=== PATIENT | male | born 1985 | race Caucasian/White ===

== ENCOUNTER 2017-12-12 02:42 | Emergency (ER) | payer OTHER ==
[~2017-12-12] VITALS: Ht 188 cm; Wt 93.0 kg
[2017-12-12 03:00] VITALS: BP 122/69
[2017-12-12] MEDS ORDERED: SULFAMETH/TRIMETH 800/160 MG 1 UDTAB TABLET PO ONE ×2 (03:58→04:00)
[2017-12-12] MEDS ORDERED: CEPHALEXIN MONOHYDRATE 500 MG CAPSULE PO ONE ×2 (03:58→04:00)
== END 2017-12-12 04:23 | disposition home or self-care (01) ==
LOC: ER 02:44
DX: L03.012 Cellulitis of left finger (principal)
CPT/HCPCS: 73130; 99284; A4606; Z7610

== ENCOUNTER 2018-02-21 05:58 | Emergency (ER) | payer OTHER ==
[~2018-02-21] VITALS: Ht 177.8 cm; Wt 77.1 kg
[2018-02-21 06:00] VITALS: BP 124/89
== END 2018-02-21 07:05 | disposition home or self-care (01) ==
LOC: ER 05:58
DX: L85.3 Xerosis cutis (principal); F17.200 Nicotine dependence, unspecified, uncomplicated; F12.10 Cannabis abuse, uncomplicated
CPT/HCPCS: A4606; Z7502; Z7610

== ENCOUNTER 2018-02-22 01:27 | Emergency (ER) | payer OTHER ==
[~2018-02-22] VITALS: Ht 175.3 cm; Wt 74.8 kg
[2018-02-22 01:28] VITALS: BP 137/84
== END 2018-02-22 02:03 | disposition home or self-care (01) ==
LOC: ER 01:27
DX: L01.00 Impetigo, unspecified (principal); F17.200 Nicotine dependence, unspecified, uncomplicated; F12.10 Cannabis abuse, uncomplicated
CPT/HCPCS: A4606; Z7610

== ENCOUNTER 2018-04-19 02:27 | Emergency (ER) | payer OTHER ==
[~2018-04-19] VITALS: Ht 188 cm; Wt 81.6 kg
[2018-04-19 02:30] VITALS: BP 140/85
[2018-04-19] MEDS ORDERED: HYDROCODONE/APAP 10/325MG 1 EA TABLET PO ONE (03:00)
[2018-04-19] MEDS ORDERED: ONDANSETRON 4 MG TAB.RAPDIS SL ONE (03:00)
[2018-04-19] MEDS ORDERED: SULFAMETH/TRIMETH 800/160 MG 1 UDTAB TABLET PO ONE ×2 (03:00→03:23)
[2018-04-19] MEDS ORDERED: CEFTRIAXONE 1 G VIAL IM ONE (03:00)
[2018-04-19] MEDS ORDERED: CEFTRIAXONE 1 G VIAL ONE (03:22)
[2018-04-19] MEDS ORDERED: LIDOCAINE /MPF 1% VIAL 5 ML VIAL ONE (03:22)
[2018-04-19] MEDS ORDERED: HYDROCODONE/APAP 10/325MG 1 EA TABLET ONE (03:22)
[2018-04-19] MEDS ORDERED: ONDANSETRON 4 MG TAB.RAPDIS ONE (03:22)
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
--- NOTE | 2018-04-19 03:32 | NUR ---
ADMINISTERED ROCEPHIN 1GM IM TO L BUTTOCKS
== END 2018-04-19 03:33 | disposition home or self-care (01) ==
LOC: ER 02:29
DX: M79.644 Pain in right finger(s) (principal); F15.10 Other stimulant abuse, uncomplicated; L98.8 Other specified disorders of the skin and subcutaneous tissue; B99.8 Other infectious disease; F17.200 Nicotine dependence, unspecified, uncomplicated
CPT/HCPCS: A4606; J0696; J3490; Q0162; Z7610

== ENCOUNTER 2018-04-24 01:50 | Emergency (ER) | payer OTHER ==
--- NOTE | 2018-04-24 02:02 | NUR ---
CALLED PT IN WAITING ROOM, NO ANSWER.
--- NOTE | 2018-04-24 02:21 | NUR ---
CALLED PT IN WAITING ROOM, NO ANSWER.
--- NOTE | 2018-04-24 02:33 | NUR ---
CALLED IN WAITING ROOM, NO ANSWER.
== END 2018-04-24 02:35 | disposition left against medical advice (07) ==
LOC: ER 01:51
DX: Z53.21 Procedure and treatment not carried out due to patient leaving prior to being seen by health care provider (principal)

== ENCOUNTER 2018-04-24 02:52 | Emergency (ER) | payer OTHER ==
[~2018-04-24] VITALS: Ht 188 cm; Wt 99.8 kg
[2018-04-24 03:26] VITALS: BP 115/78
== END 2018-04-24 03:45 | disposition left against medical advice (07) ==
LOC: ER 02:53
DX: Z53.21 Procedure and treatment not carried out due to patient leaving prior to being seen by health care provider (principal); M79.641 Pain in right hand
CPT/HCPCS: A4606; Z7610

== ENCOUNTER 2018-04-25 03:21 | Emergency (ER) | payer OTHER ==
[~2018-04-25] VITALS: Ht 188 cm; Wt 93.0 kg
--- NOTE | 2018-04-25 04:20 | NUR ---
33/M Pt BIB SELF C/O RT THUMB SWELLING AND PAIN, AND SORES ON BOTH HANDS. VSS. Pt RESTING IN BED QUIETLY AND COMFORTABLY. WAITING TO BE SEEN BY .
--- NOTE | 2018-04-25 04:46 | NUR ---
BEING SEEN BY
[2018-04-25] MEDS ORDERED: LIDOCAINE HCL/MPF 1% 30 ML VIAL IJ ONE (04:49)
[2018-04-25] MEDS ORDERED: LIDOCAINE 1% INJ 50 ML MDV IJ ONE ×2 (05:00→05:17)
--- NOTE | 2018-04-25 05:20 | NUR ---
PERFORMING I&D AT BEDSIDE
[2018-04-25] MEDS ORDERED: AMOX/CLAVULANATE 875 MG TABLET PO ONE (05:30)
[2018-04-25] MEDS ORDERED: AMOX/CLAVULANATE 875 MG TABLET ONE (05:32)
[2018-04-25 06:03] VITALS: BP 131/75
--- NOTE | 2018-04-25 06:04 | NUR ---
Patient discharged to home in stable condition. Written and verbal after care instructions given. Patient verbalizes understanding of instruction. PT ambulatory with a steady gait VITAL SIGNS WITHIN NORMAL LIMITS.
== END 2018-04-25 06:03 | disposition home or self-care (01) ==
LOC: ER 03:21
DX: L03.011 Cellulitis of right finger (principal); F17.200 Nicotine dependence, unspecified, uncomplicated; F12.10 Cannabis abuse, uncomplicated
CPT/HCPCS: A4606; J3490; Z7610

== ENCOUNTER 2018-08-28 02:25 | Emergency (ER) | payer OTHER ==
--- NOTE | 2018-08-28 02:39 | NUR ---
CALLED IN WAITING ROOM, NO ANSWER.
--- NOTE | 2018-08-28 02:50 | NUR ---
PATIENT NOT IN WAITING ROOM.
[2018-08-29] MEDS ORDERED: LIDOCAINE 1%-EPI 1:100,000 20 ML VIAL ONE (23:04)
[2018-08-29] MEDS ORDERED: TDAP [DIPH/PERTUSSIS/TET] 0.5 ML VIAL IM ONE (23:05)
[2018-08-29] MEDS ORDERED: IBUPROFEN 400 MG TABLET ONE (23:05)
== END 2018-08-28 03:05 | disposition left against medical advice (07) ==
LOC: ER 02:27
DX: Z53.21 Procedure and treatment not carried out due to patient leaving prior to being seen by health care provider (principal)

== ENCOUNTER 2018-08-29 21:22 | Emergency (ER) | payer OTHER ==
[~2018-08-29] VITALS: Ht 182.9 cm; Wt 90.7 kg
[2018-08-29] MEDS ORDERED: LIDOCAINE 1%-EPI 1:100,000 20 ML VIAL TP ONE (23:00)
[2018-08-29] MEDS ORDERED: IBUPROFEN 400 MG TABLET PO ONE (23:00)
[2018-08-29] MEDS ORDERED: TDAP [DIPH/PERTUSSIS/TET] 0.5 ML VIAL IM ONE ×2 (23:00)
[2018-08-29] MEDS ORDERED: LIDOCAINE 1%-EPI 1:100,000 20 ML VIAL ONE (23:00)
[2018-08-29] MEDS ORDERED: IBUPROFEN 400 MG TABLET ONE (23:00)
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
--- NOTE | 2018-08-29 23:45 | NUR ---
I/D DONE BY JULIENNE OLEARY AT BEDSIDE TOLERATED WELL
--- NOTE | 2018-08-30 00:12 | NUR ---
Patient discharged to home in stable condition. Written and verbal after care instructions given. Patient verbalizes understanding of instruction. ALL DUE MEDICINE ASMINISTERED ORDERED
[2018-08-30 00:16] VITALS: BP 129/52
== END 2018-08-30 00:17 | disposition home or self-care (01) ==
LOC: ER 21:22
DX: L02.413 Cutaneous abscess of right upper limb (principal); L03.113 Cellulitis of right upper limb; F19.10 Other psychoactive substance abuse, uncomplicated; F10.10 Alcohol abuse, uncomplicated; F17.200 Nicotine dependence, unspecified, uncomplicated; F12.10 Cannabis abuse, uncomplicated; Y90.9 Presence of alcohol in blood, level not specified
CPT/HCPCS: 10060; 90471; 90715; 99283; A4606; A6402 ×2; J3490; Z7610

== ENCOUNTER 2022-07-18 19:49 | Emergency (ER) | payer MEDICAID, OTHER ==
[~2022-07-18] VITALS: Ht 188 cm; Wt 99.8 kg
[2022-07-18 20:42] VITALS: BP 125/61
[2022-07-18] MEDS ORDERED: IBUPROFEN 600 MG TABLET PO ONE (21:00)
[2022-07-18] MEDS ORDERED: LIDOCAINE VISCOUS 2% UD 15 ML UDC ONE (21:19)
[2022-07-18] MEDS ORDERED: DEXAMETHASONE SOD PHOSPHATE 10 MG/ML VIAL ONE (21:19)
[2022-07-18] MEDS ORDERED: DEXAMETHASONE SOD PHOSPHATE 4 MG/ML VIAL IM ONE (21:30)
[2022-07-18] MEDS ORDERED: LIDOCAINE VISCOUS 2% UD 15 ML UDC MM ONE (21:30)
[2022-07-18] MEDS ORDERED: ACET325C7 PO (22:48)
[2022-07-18] MEDS ORDERED: IBUP-1953 PO (22:48)
[2022-07-18] MEDS ORDERED: KETOROLAC TROMETHAMINE INJ 30 MG/ML VIAL ONE (22:54)
[2022-07-18] MEDS ORDERED: KETOROLAC TROMETHAMINE INJ 60 MG/2 ML VIAL IM ONE (23:00)
== END 2022-07-18 23:42 | disposition home or self-care (01) ==
LOC: ER 19:49
DX: U07.1 COVID-19 (principal); R51.9 Headache, unspecified
CPT/HCPCS: 99284; 71045; 87426; 96372 ×2; J1100; J1885; C9803